=== PATIENT | male | born 1945 | race Caucasian/White ===

== ENCOUNTER 2021-06-30 01:48 | Emergency (ER) | payer MEDICARE ==
[~2021-06-30] VITALS: Ht 175.3 cm; Wt 84.8 kg
[2021-06-30] MEDS ORDERED: IV NORMAL SALINE 1000ML BAG 1,000 ML IV SCH (02:00)
--- NOTE | 2021-06-30 02:01 | PHYS DOC ---
General Adult EDM: Chief Complaint: ALTERED MENTAL STATUS HPI: HPI: 76-year-old male with history of hypertension, hyperlipidemia and GERD, presents to the ED brought in by EMS concern for code stroke with right-sided weakness and aphasia. Per patient was last seen normal at 9:30 PM when went to bed. Around 11pm his woke up and noticed he could not speak, later realized he was not moving the right side of his body. Takes a daily aspirin. Is not vaccinated for Covid and was positive for Covid June 06. Pt tested positive for Covid and did not have any symptoms. Patient with no prior history of intracranial hemorrhage, bleeding requiring transfusion/GI ble eding, cerebrovascular accident, myocardial infarction, or hospitalizations in the past year. Patient does not smoke tobacco or drink alcohol daily. History was provided by who was at bedside more than 30 minutes after patient arrived in the emergency department. However had been called by information clerk brokerage/rn to confirm LKW time. Review of Systems: Review of Systems: ROS unobtainable due to medical condition/aphasia Heart Score: C/O Chest Pain: No Risk Factors: Risk Factors: DM, Current or recent (<one month) smoker, HTN, HLP, family history of CAD, obesity. Risk Scores: Score 0 - 3: 2.5% MACE over next 6 weeks - Discharge Home Score 4 - 6: 20.3% MACE over next 6 weeks - Admit for Clinical Observation Score 7 - 10: 72.7% MACE over next 6 weeks - Early Invasive Strategies Current Medications: Current Medications Medications (Trade) Dose Ordered Sig/Raj Start Time Stop Time Status Last Admin Dose Admin Sodium Chloride 1,000 ml @ 1,000 mls/hr Q1H 06/30/21 02:00 06/30/21 02:59 UNV Physical Exam: PE: Constitutional: afebrile, non-toxic appearance. HENT: Normocephalic, atraumatic, no signs of head trauma Eyes: pupils equal and reactive, EOMI, conjunctiva normal, no discharge, opens eyes to stimulus, prefers left-sided gaze, when attempting to smile left nasolabial fold raises more than right Neck: Normal range of motion, supple, Cardiovascular: S1/2 present, regular rhythm Lungs & Thorax: bilateral equal chest rise, no tachypnea or increased work of breathing Abdomen: soft, no tenderness, Skin: Warm, dry, no erythema, no rash. [] Extremities: No tenderness, no cyanosis, no lower extremity edema Neurologic: [id number], not moving right arm/leg (later resists right leg/arm mov ement-has some movement against gravity), aphasia, moves left arm and leg against gravity Psychologic: Calm mood, normal affect EKG: EKG: Sinus them 82 bpm, no axis deviation, QTC 466, no T wave inversion, no ST e levation or ST depression Radiology/Procedures: Radiology/Procedures: IMAGING REPORT Signed PATIENT: NIKI ZELAYACOUNT: [id number] : 1945 LOCATION: ER AGE: 76 SEX: M EXAM STATUS: PRE ER ORD. PHYSICIAN: SIS DE LA CRUZ DO REASON: right sided weakness, apjasic PROCEDURE: CT CODE STROKE HEAD WO EXAM: CT HEAD WITHOUT CONTRAST. HISTORY: Code stroke. Right weakness, aphasia. TECHNIQUE: Computed tomography of the head was performed without intravenous contrast. *One or more of the following individualized dose reduction techniques were utilized for this examination: 1. Automated exposure control. 2. Adjustment of the mA and/or kV according to patient size. 3. Use of iterative reconstruction technique. COMPARISON: None. FINDINGS: There is no intracranial hemorrhage. Hypoattenuation within the periventricular white matter indicates mild chronic microangiopathic change. The ventricles are normal in size and position. The visualized paranasal sinuses appear clear. The orbits are unremarkable. The temporal bones are unremarkable. The calvarium reveals no suspicious lesions. IMPRESSION: 1. No intracranial hemorrhage. These findings were called to Dr. De La Cruz by Rafiq Peck on 06/30/2021 at 2:04 AM. FOR INTERNAL CODING PURPOSES RESULT CODE: (C) Electronically signed by: Krista Peck MD (06/30/2021 2:08 AM) [facility] DICTATED and SIGNED BY: WERNER PECK MD DATE: 06/30/21 [id number] IMAGING REPORT Signed PATIENT: NIKI ZELAYACOUNT: [id number] : 1945 LOCATION: ER AGE: 76 SEX: M EXAM STATUS: REG ER ORD. PHYSICIAN: SIS DE LA CRUZ DO REASON: right sided weakness, apHASIC;OMNI 350,75ML PROCEDURE: CT ANGIOGRAPHY HEAD AND NECK EXAM: 1. CTA HEAD WITH AND WITHOUT CONTRAST. 2. CTA NECK WITH AND WITHOUT CONTRAST. HISTORY: Right weakness, aphasia. TECHNIQUE: Computed tomographic angiography of the head and neck was performed before and after the intravenous administration of iodinated contrast. Three- dimensional reconstructions were also performed. One or more of the following individualized dose reduction techniques were utilized for this examination: 1. Automated exposure control. 2. Adjustment of the mA and/or kV according to patient size. 3. Use of iterative reconstruction technique. COMPARISON: None. FINDINGS: Angiographic findings: There is a common origin of the left common carotid and brachiocephalic arteries, a variant of normal. There is no arch vessel stenosis. The left proximal common carotid artery is stenosed with intimal thickening but no significant stenosis. There is approximately 50% stenosis at the origin of the left internal carotid artery. The right common and internal carotid arteries are patent. The external carotid systems are patent. The vertebral arteries are patent. There is a severe stenosis at the terminus of the basilar artery and origin of both posterior cerebral arteries. They are patent more distally. The posterior communicating arteries are diminutive. There is mild stenosis of the left supraclinoid internal carotid artery. The right internal carotid artery is patent. The left M1 segment occludes distally. There is an atherosclerotic calcification at the proximal aspect of the involved segment. There is some reconstitution of into radicals from collaterals are difficult to identify. There are mild multifocal stenoses of the right M1 segment. There is a moderate to severe stenosis of the left A2 segment proximally. The anterior communicating artery is visualized. Nonangiographic findings: There is no intracranial hemorrhage. Mild hypoattenuation within the periventricular white matter indicates mild chronic small vessel ischemic white matter change. The ventricles are normal in size and position. The paranasal sinuses appear clear. The orbits are unremarkable. The temporal bones are unremarkable. Bone windows reveal no suspicious lesions. The lung apices demonstrate no acute abnormality. The parotid glands and submandibular glands are unremarkable. The thyroid gland demonstrates no suspicious lesions. There are no laryngeal or pharyngeal masses. There are no pathologically enlarged lymph nodes. IMPRESSION: 1. Occlusion of the left distal M1 segment. This may be thrombotic rather than embolic given atherosclerotic calcifications at the origin of the involved segment. 2. 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 3. Moderate to severe stenosis of the left proximal A2 segment. 4. Mild multifocal stenosis of the right A2 segment. 5. 50% stenosis at the origin of the left cervical internal carotid artery. These findings were called to Dr. De La Cruz by Rafiq Peck on 06/30/2021 at 2:30 AM. [facility] Compliance Statement - Stenosis calculations for CT, MR and conventional angiography are based upon measurement of the distal ICA diameter in accordance with the NASCET methodology. Stenosis calculations for carotid ultrasound studies are derived from validated velocity criteria which are known to correlate with the NASCET methodology. Electronically signed by: Krista Peck MD (06/30/2021 2:48 AM) [facility] DICTATED and SIGNED BY: WERNER PECK MD DATE: 06/30/21 [id number] IMAGING REPORT Signed PATIENT: NIKI ZELAYACOUNT: [id number] : 1945 LOCATION: ER AGE: 76 SEX: M EXAM STATUS: REG ER ORD. PHYSICIAN: SIS DE LA CRUZ DO REASON: right sided weakness PROCEDURE: PORTABLE CHEST 1V EXAM: CHEST ONE VIEW. HISTORY: Right weakness. COMPARISON: None. FINDINGS: A frontal view of the chest is obtained. There are no confluent infiltrates. There are mild interstitial opacities in the bases and right perihilar distribution. There is no pneumothorax or pleural effusion. The heart is not enlarged. The aorta is calcified and tortuous. IMPRESSION: 1. Mild pulmonary edema versus atypical pneumonia. Electronically signed by: Krista Peck MD (06/30/2021 2:50 AM) [facility] DICTATED and SIGNED BY: WERNER PECK MD DATE: 06/30/21 [id number] 0 Course & Med Decision Making: Course & Med Decision Making Pertinent Labs and Imaging studies reviewed. (See chart for details) Concern for left MCA occlusion, consistent with patient's physical exam and findings. Patient's last known well was more 4.5 hours, thus not a tpa candidate-I d/w Dr. Mayer who also agrees that pt is not a tpa candidate. Chest xay is concerning for atypical pneumonia, rapid Covid negative. Pt accepted at for higher level of care and to consider neuroIR intervention. Pt stable at time of transfer- and son both in agreement with this plan. I have spoken with the patient and/or caregivers. I have explained the patient's condition, diagnosis and treatment plan based on the information available to me at this time. I have answered the patient's and/or caregivers questions and answered any concerns. The patient and/or caregivers have as good an understanding of the patient's diagnosis, condition and treatment plan as can be expected at this point. The patient has been stabilized within the capability of the emergency department. The patient will be transported for further care and management or will be moved to an observation or inpatient service. I have communicated with the staff or medical practitioner taking over this patient's care. Critical Care: Authorized and Performed by: Sis De L aCruz DO Total critical care time: approximately 60 minutes Due to a high probability of clinically significant, life threatening deterioration, the patient required my highest level of preparedness to intervene emergently and I personally spent this critical care time directly and personally managing the patient. This critical care time included obtaining a history; examining the patient; pulse oximetry; ventilator management if necessary; ordering and review of studies; arranging urgent treatment with development of a management plan; evaluation of patient's response to treatment; frequent reassessment; discussion with patient/family; and, discussions with other providers. This critical care time was performed to assess and manage the high probability of imminent, life-threatening deterioration that could result in multi-organ failure. It was exclusive of separately billable procedures and treating other patients and teaching time. Please see MDM section and the rest of the note for further information on patient assessment and treatment. Dragon Disclaimer: Gurwinder Disclaimer: This electronic medical record was generated, in whole or in part, using a voice recognition dictation system. Departure Departure Impression: Primary Impression: Acute ischemic left MCA stroke Additional Impressions: Aphasia Atypical pneumonia Disposition: [facility] (to , accepted by Dr. Mayer, neurology) Condition: CRITICAL SIS DE LA CRUZ DO Jun 30, 2021:01
[2021-06-30 02:03] LABS: BASO % 1 % (0-3); EOS # 0.2 x10^3/uL (0.0-0.7); EOS % 4 % (0-3); LYMPH # 1.1 x10^3/uL (1.0-4.8); LYMPH % 18 % (24-48); MEAN CORPUSCULAR HEMOGLOBIN 31 pg (25-35); MEAN CORPUSCULAR HGB CONC 34 g/dL (31-37); MEAN CORPUSCULAR VOLUME 91 fL (79-100); MONO # 0.7 x10^3/uL (0.0-1.1); MONO % 12 % (0-9); NEUT # 3.8 x10^3/uL (1.8-7.7); NEUT % 65 % (31-73); PLATELET COUNT 265 x10^3/uL (140-400); RED CELL DISTRIBUTION WIDTH 13.6 % (11.5-14.5); WHITE BLOOD COUNT 5.9 x10^3/uL (4.0-11.0)
--- NOTE | 2021-06-30 02:11 | RAD ---
EXAM: CT HEAD WITHOUT CONTRAST. HISTORY: Code stroke. Right weakness, aphasia. TECHNIQUE: Computed tomography of the head was performed without intravenous contrast. *One or more o f the following individualized dose reduction techniques were utilized for this examination: 1. Automated exposure control. 2. Adjustment of the mA and/or kV according to patient size. 3. Use of iterative reconstruction technique. COMPARISON: None. FINDINGS: There is no intracranial hemorrhage. Hypoattenuation within the periventricular white matte r indicates mild chronic microangiopathic change. The ventricles are normal in size and position. The visualized paranasal sinuses appear clear. The orbits are unremarkable. The temporal bones are un remarkable. The calvarium reveals no suspicious lesions. IMPRESSION: 1. No intracranial hemorrhage. These findings were called to Dr. Powell by Rafiq Peck on 06/30/2021 at 2:04 AM. FOR INTERNAL CODING PURPOSES RESULT CODE: (C) Electronically signed by: Krista Peck MD (06/30/2021 2:08 AM) [facility]
[2021-06-30] MEDS ORDERED: IOHEXOL 350 MG/ML 100 ML VIAL. IV ONE (02:15)
[2021-06-30 02:16] LABS: PROTHROMBIN TIME PATIENT 12.8 SEC (11.7-14.0)
--- NOTE | 2021-06-30 02:50 | RAD ---
EXAM: 1. CTA HEAD WITH AND WITHOUT CONTRAST. 2. CTA NECK WITH AND WITHOUT CONTRAST. HISTORY: Right weakness, aphasia. TECHNIQUE: Computed tomographic angiography of the head and neck was performed before and after the i ntravenous administration of iodinated contrast. Three-dimensional reconstructions were also performe d. One or more of the following individualized dose reduction techniques were utilized for this exami nation: 1. Automated exposure control. 2. Adjustment of the mA and/or kV according to patient size. 3. Use of iterative reconstruction technique. COMPARISON: None. FINDINGS: Angiographic findings: There is a common origin of the left common carotid and brachiocephalic arteri es, a variant of normal. There is no arch vessel stenosis. The left proximal common carotid artery is stenosed with intimal thickening but no significant stenos is. There is approximately 50% stenosis at the origin of the left internal carotid artery. The right common and internal carotid arteries are patent. The external carotid systems are patent. The vertebral arteries are patent. There is a severe stenosis at the terminus of the basilar artery and origin of both posterior cerebra l arteries. They are patent more distally. The posterior communicating arteries are diminutive. There is mild stenosis of the left supraclinoid internal carotid artery. The right internal carotid a rtery is patent. The left M1 segment occludes distally. There is an atherosclerotic calcification at the proximal aspe ct of the involved segment. There is some reconstitution of into radicals from collaterals are diffic ult to identify. There are mild multifocal stenoses of the right M1 segment. There is a moderate to severe stenosis of the left A2 segment proximally. The anterior communicating artery is visualized. Nonangiographic findings: There is no intracranial hemorrhage. Mild hypoattenuation within the perive ntricular white matter indicates mild chronic small vessel ischemic white matter change. The ventricl es are normal in size and position. The paranasal sinuses appear clear. The orbits are unremarkable. The temporal bones are unremarkable. Bone windows reveal no suspicious lesions. The lung apices demonstrate no acute abnormality. The parotid glands and submandibular glands are unremarkable. The thyroid gland demonstrates no suspi cious lesions. There are no laryngeal or pharyngeal masses. There are no pathologically enlarged lymph nodes. IMPRESSION: 1. Occlusion of the left distal M1 segment. This may be thrombotic rather than embolic given atherosc lerotic calcifications at the origin of the involved segment. 2. 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 3. Moderate to severe stenosis of the left proximal A2 segment. 4. Mild multifocal stenosis of the right A2 segment. 5. 50% stenosis at the origin of the left cervical internal carotid artery. These findings were called to Dr. Powell by Rafiq Peck on 06/30/2021 at 2:30 AM. [facility] Compliance Statement - Stenosis calculations for CT, MR and conventional angiography are based u esther measurement of the distal ICA diameter in accordance with the NASCET methodology. Stenosis calcu lations for carotid ultrasound studies are derived from validated velocity criteria which are known t o correlate with the NASCET methodology. Electronically signed by: Krista Peck MD (06/30/2021 2:48 AM) [facility]
--- NOTE | 2021-06-30 02:52 | RAD ---
EXAM: CHEST ONE VIEW. HISTORY: Right weakness. COMPARISON: None. FINDINGS: A frontal view of the chest is obtained. There are no confluent infiltrates. There are mild interstitial opacities in the bases and right gustavo hilar distribution. There is no pneumothorax or pleural effusion. The heart is not enlarged. The aort a is calcified and tortuous. IMPRESSION: 1. Mild pulmonary edema versus atypical pneumonia. Electronically signed by: Krista Peck MD (06/30/2021 2:50 AM) [facility]
[2021-06-30 03:15] VITALS: BP 173/81
[2021-06-30 03:31] LABS: CALCIUM 7.9 mg/dL (8.5-10.1); CREATININE 1.1 mg/dL (0.7-1.3); GFR 65.3
[2021-06-30 03:38] LABS: ALBUMIN 3.2 g/dL (3.4-5.0); ALBUMIN/GLOBULIN RATIO 0.9 (1.0-1.7); TOTAL BILIRUBIN 0.6 mg/dL (0.2-1.0); TOTAL PROTEIN 6.9 g/dL (6.4-8.2)
--- NOTE | 2021-06-30 07:24 | EKG ---
[address] [place] [address] Test Date: 2021-06-30 Test Time: 02:17:18 Pat Name: NIKI ZELAYA Department: Room: Gender: M Ironer Or Presser: : 1945 Requested By: BEBA DE LA CRUZ Order Number: [id number] Reading MD: Tomer Valenzuela Measurements Intervals [place] Rate: 82 P: 136 RI: 174 QRS: 73 QRSD: 90 T: 73 QT: 396 QTc: 466 Interpretive Statements SINUS RHYTHM Electronically Signed On 06-30-2021 13:38:23 RADIOLOGY THERAPIST by Tomer Valenzuela
== END 2021-06-30 03:32 | disposition short-term general hospital (02) ==
LOC: ER 01:48
DX: I63.9 Cerebral infarction, unspecified (principal); R47.01 Aphasia; J18.9 Pneumonia, unspecified organism; Z20.822 Contact with and (suspected) exposure to COVID-19; I10 Essential (primary) hypertension; K21.9 Gastro-esophageal reflux disease without esophagitis
CPT/HCPCS: 36415; 70450; 70496; 70498; 71045; 80053; 82962; 84484; 85025; 85610; 85730; 87426; 93005; 99285; U0003; U0005